=== PATIENT | male | born 1935 | race Caucasian/White ===

== ENCOUNTER → 2016-06-06 | Outpatient (CLI) | payer OTHER, BC | END | disposition home or self-care (01) | LOC: C.LABSPEC 10:37 | PROVIDERS: ATTEND Urology | DX: N39.0 Urinary tract infection, site not specified (principal) ==

== ENCOUNTER 2018-07-28 22:04 | Inpatient (IN) ==
--- OUTSIDE RECORDS SUMMARY | 2018-07-29 00:40 | External Medical Summary | Continuity of Care Document ---
:1935 Author Name Alejandro Avina, Provider Address Unavailable Unavailable , Care Team Providers Name Role Phone Kp Avina, Enzo Butt Unavailable [email or web address] Unavailable Unavailable Unavailable Unavailable Problems Enlarged prostate without lower urinary tract symptoms (luts ) (600.00) (N40.0) Retention of urine (788.20) (R33.9) Urinary tract infection (599.0) (N39.0) Heart trouble (429.9) (I51.9) Hypercholesterolemia (272.0) (E78.00) Hypertension (401.9) (I10) Diabetes mellitus (250.00) (E11.9) Congestive heart failure (428.0) (I50.9) Pacemaker (V45.01) (Z95.0) Arthritis (716.90) (M19.90) Allergies and Adverse Reactions Codeine Derivatives (Allergy) Crestor TABS (Allergy) nitroglycerin (Allergy) Pravachol TABS (Allergy) Adhesive Tape (Allergy) Latex (Allergy) Medications Tamsulosin HCl - 0.4 MG Oral Capsule; TAKE 1 CAPSULE B Kailyn Guzman I. Quantity: 90 Refills: 3 Pantoprazole Sodium 40 MG Oral Tablet Delayed Release Refills: 0 Furosemide 40 MG Oral Tablet Refills: 0 Metoprolol Tartrate 25 MG Oral Tablet Refills: 0 Aspirin 81 MG TABS Refills: 0 Docusate Sodium 50 MG CAPS Refills: 0 diphenhydrAMINE HCl - 25 MG Oral Tablet Refills: 0 HYDROcodone-Acetaminophen 5-325 MG Oral Tablet Refills: 0 Simvastatin 20 MG Oral Tablet Refills: 0 metFORMIN HCl - 850 MG Oral Tablet Refills: 0 Ciprofloxacin HCl - 500 MG Oral Tablet Refills: 0 Finasteride 5 MG Oral Tablet; TAKE 1 TABLET DAILY D IRECTED. Kailyn Goodrich I. Start: 18-Dec-2015 Quantity: 90 Refills: 3 PredniSONE TABS Refills: 0 Lantus SOLN Refills: 0 Vitamin C 500 MG Oral Tablet Refills: 0 Procedures History of Heart Surgery Status: Complet ed Immunizations Immunizations not documented Family History Father Family history of diabetes mellitus (V18.0) (Z83.3) Status: Active Sister Family history of diabetes mellitus (V18.0) (Z83.3) Status: Active Brother Family history of diabetes mellitus (V18.0) (Z83.3) Status: Active Family history of Bile duct cancer (156.1) (C24.0) Status: A ctive Social History - Smoking Status Former smoker Plan of Treatment Planned Encounters Appointment; Enzo Goodrich M.D. Start: 10-Dec-2018 9:30 Re quest Planned Observations Planned Goals not documented Results No Known Results Results not documented Encounters Appointment; Enzo Goodrich M.D. 04-Dec-2017 9:45 Encounter Diagnosis: Problem not documented Appointment; Enzo Goodrich M.D. 05-Jun-2017 9:30 Encounter Diagnosis: Problem not documented Appointment; Enzo Goodrich M.D. 05-Dec-2016 9:30 Encounter Diagnosis: Problem not documented Appointment; Enzo Goodrich M.D. 10-Dec-2018 9:30 Encounter Diagnosis: Problem not documented
[2018-07-29] MEDS ORDERED: GLUCOSE 10 TABS/TUBE PO PRN (00:58)
[2018-07-29] MEDS ORDERED: ONDANSETRON INJ 2 MG/ML 2 ML VIAL IV PRN (00:58)
[2018-07-29] MEDS ORDERED: ALUMINUM/MAGNESIUM SUSP 30 ML UDC PO PRN (00:58)
[2018-07-29] MEDS ORDERED: DEXTROSE 50% 50 ML SYRINGE IV PRN (00:58)
[2018-07-29] MEDS ORDERED: GLUCOSE 40% GEL 15 GM TUBE PO PRN (00:58)
[2018-07-29] MEDS ORDERED: GLUCAGON FOR INJ 1 MG VIAL SQ PRN (00:58)
[2018-07-29] MEDS ORDERED: MAGNESIUM HYDROXIDE SUSP 30 ML UDC PO PRN (00:58)
[2018-07-29] MEDS ORDERED: CARBOHYDRATES FOR HYPOGLYCEMIA PO PRN (00:58)
[2018-07-29] MEDS ORDERED: ACETAMINOPHEN 325 MG TAB PO PRN (00:58)
--- NOTE | 2018-07-29 01:12 | History & Physical Report ---
Date of Service July 29, 2018 Assessment & Plan (1) Left lower lobe pneumonia: 83 yo M direct transfer from [facility] with history of HTN, PVD, CVA, Pacemaker, PMR, DM, GERD, HLD presenting with history of confusion in setting of possible, pneumonia vs pleural effusion Suspected CAP, Left pleural effusion - Admit to Telemetry - Febrile at 100.5 at outside hospital, no leukocytosis, CT chest reportedly showed Let loculated pleural effusion with unclear etiology , either metastatic or infectious - CXR ordered at [facility], preliminary read prior to radiology is suggestive of LLL pneumonia, F/u radiologist report - currently no fever, on NC 2L maintaining saturation - Received Rocephin at outside hospital - Start Rocephin , Azithromycin - Thoracic surgery consulted to evaluate need for thoracentesis (2) Pleural effusion: etiology unclear, will await confirmation with in house imaging Loculated left pleural effusion noted on report from outside facility suggesting either infection or malignancy management as above (3) Diabetes mellitus: SS, Held home insulin, metformin (4) Atrial fibrillation: new onset Atrial fribrillation with RVR etiology unclear given magnesium 2 gm given hypomagnesemiaia noted at outside hospital Repeat was Mg 2, Potassium 3.8 Started IV NS with 20 meq K Gave home dose of 35 mg PO metoprolol Continue to monitor (5) Hypertension: BP controlled Continue Metoprolol held Lasix (6) CAD (coronary artery disease): s/p CABG asx Troponin negative at outside hospital (7) Hyperlipidemia: Continue Simvastatin (8) PMR (polymyalgia rheumatica): Continue prednisone 10 mg daily (9) BPH (benign prostatic hyperplasia): Continue finasteride (10) GERD (gastroesophageal reflux disease): Continue ppi (11) DVT prophylaxis: Heparin History of Present Illness Chief Complaint: Confusion, Pneumonia, Pleural effusion Primary Care Provider: Justin Reeves This is an 83 yo M direct transfer from [facility] with history of HTN, PVD, CVA, Pacemaker, PMR, DM, GERD, HLD. Patient's reported chief complaint was confusion. At the outside hospital, patient was febrile with 100.5 temperature, O2 sat 90- 99, RR 17-20, unremarkable Wbc ct, CMP unremarkable, Mg 1.7, CT head reportedly negative, CT chest with loculated left pleural effusion maybe secondary metastasis or infection. Patient was transferred for possible thoracentesis if indicated. Patient was given 2 gm of Rocephin prior to transfer. On arrival to [facility], patient was normotensive, afebrile patient was in Afib with RVR. He reports no previous history of Afib. Patient reports he previously had chest discomfort but it has resolved, no sob, no cough, no edema. PastMedHx: CVA PVD Heart disease HTN Pacemaker PMR Enlarged prostate DM GERD HLD Arthritis SurgHx: Appendectomy Cholecystectomy CABG HIP sx Hernia repair Allergies Allergy/AdvReac Type Severity Reaction Status Date / Time latex Allergy Redness of Verified 07/29/18 01:21 Skin codeine AdvReac Mild FEELS GOOFY Verified 03/20/09 03:55 nitroglycerin AdvReac Mild HYPOTENSION Verified 03/20/09 03:55 pravastatin AdvReac Unknown Verified 07/29/18 01:08 rosuvastatin AdvReac Unknown Verified 07/29/18 01:08 Home Medications Home Medications Medication Instructions Recorded Confirmed Type Humalog U-100 Insulin 3 unit SUBCUT TID 07/29/18 07/29/18 History Lantus Solostar U-100 Insulin 5 unit SUBCUT BID 07/29/18 07/29/18 History ascorbic acid (vitamin C) [Vitamin 500 mg PO DAILY 07/29/18 07/29/18 History C] aspirin 81 mg PO DAILY 07/29/18 07/29/18 History finasteride 5 mg PO DAILY 07/29/18 07/29/18 History furosemide 40 mg PO DAILY 07/29/18 07/29/18 History metformin 850 mg PO BID 07/29/18 07/29/18 History pantoprazole 40 mg PO DAILY 07/29/18 07/29/18 History potassium chloride 8 meq PO DAILY 07/29/18 07/29/18 History simvastatin 20 mg PO DAILY 07/29/18 07/29/18 History tamsulosin 0.4 mg PO DAILY 07/29/18 07/29/18 History Saccharomyces boulardii 250 mg PO DAILY 7 Days #7 cap 08/02/18 Rx metoprolol tartrate 100 mg PO BID #60 tab 08/02/18 Rx nystatin 5 ml PO QID 7 Days #150 ml 08/02/18 Rx Past Med/Surg History Medical History Hyperlipidemia Diabetes mellitus PMR (polymyalgia rheumatica) Hypertension CAD (coronary artery disease) CVA (cerebral vascular accident) Arthritis GERD (gastroesophageal reflux disease) PVD (peripheral vascular disease) Pacemaker Prostate enlargement Surgical History H/O hernia repair History of appendectomy History of cholecystectomy History of hip surgery Hx of CABG Social History Preferred Language: Greenlandic Communication Ability: Effective Beliefs That Will Affect Care: None marital status: Current Living Situation: Spouse Feels Safe at Home: Yes Smoking Status: Never smoker Hx Alcohol Use: No Hx Substance Use: No Review of Systems Review of Systems: All systems reviewed & are unremarkable except as noted in HPI & below Physical Exam Physical Exam: GENERAL APPEARANCE: alert and cooperative, and appears to be in no acute distress. HEAD: normocephalic. EYES: PERRL, EOMI.l, vision is grossly intact. EARS: hearing grossly intact. NOSE: No nasal discharge. NECK: Neck supple, non-tender without lymphadenopathy CARDIAC: Normal S1 and S2. No S3, S4 or murmurs. Rhythm is irreguarly irregular LUNGS:Left lower lobe crackles, dec'd breath sounds. no wheezing ABDOMEN: Positive bowel sounds. Soft, nondistended, nontender. No guarding or rebound. No masses. LOWER EXTREMITY: no edema NEUROLOGICAL: CN II-XII grossly intact. Strength and sensation symmetric and intact throughout SKIN: Skin normal color, texture and turgor with no lesions or eruptions. Results & Data Vital Signs (Past 12 Hours) Vital Signs Temp Pulse Resp BP Pulse Ox 07/29/18 00:28 37.0 C 105 H 18 129/64 97 Intake and Output 07/28/18 07/28/18 07/29/18 14:59 22:59 06:59 Intake Total 100 / 100 Balance 100 / 100 Intake: IV 100 / 100 MAGNESIUM SULFATE / D5W 1 gm In 100 / 100 100 ml @ 100 mls/hr IV Q1H [facility] Rx#:[id number] Other: Weight 68 kg Patient Weight 07/29/18 06:59 Weight 68 kg Laboratory Results Laboratory Results WBC 4.92 K/uL (4.8-10.8) 07/29/18 01:15 RBC 4.24 M/uL (4.7-6.1) L 07/29/18 01:15 Hgb 13.0 g/dL (14.0-18.0) L 07/29/18 01:15 Hct 38.8 % (42-52) L 07/29/18 01:15 MCV 91.5 fL (80-100) 07/29/18 01:15 MCH 30.7 pg (25-34) 07/29/18 01:15 MCHC 33.5 g/dL (32-36) 07/29/18 01:15 RDW Std Deviation 47.8 fL (36.4-46.3) H 07/29/18 01:15 RDW Coeff of Elizabeth 14.3 % (11.5-14.5) 07/29/18 01:15 Plt Count 150 K/uL (130-400) 07/29/18 01:15 MPV 9.7 fL (7.4-10.4) 07/29/18 01:15 Immature Gran % (Auto) 0.2 % 07/29/18 01:15 Neut % (Auto) 90.8 % 07/29/18 01:15 Lymph % (Auto) 3.7 % 07/29/18 01:15 Yancey % (Auto) 5.1 % 07/29/18 01:15 Eos % (Auto) 0.0 % 07/29/18 01:15 Baso % (Auto) 0.2 % 07/29/18 01:15 Immature Gran # (Auto) 0.01 K/uL (0.00-0.02) 07/29/18 01:15 Neut # (Auto) 4.47 K/uL (1.4-6.5) 07/29/18 01:15 Lymph # (Auto) 0.18 K/uL (1.2-3.4) L 07/29/18 01:15 Yancey # (Auto) 0.25 K/uL (0.11-0.59) 07/29/18 01:15 Eos # (Auto) 0.00 K/uL (0-0.5) 07/29/18 01:15 Baso # (Auto) 0.01 K/uL (0-0.2) 07/29/18 01:15 Sodium 134 mmol/L (136-145) L 07/29/18 01:15 Potassium 3.8 mmol/L (3.5-5.1) 07/29/18 01:15 Chloride 99 mmol/L (98-107) 07/29/18 01:15 Carbon Dioxide 28 mmol/L (21-32) 07/29/18 01:15 Anion Gap 7.0 (3-11) 07/29/18 01:15 BUN 26 mg/dl (7-18) H 07/29/18 01:15 Creatinine 1.03 mg/dl (0.6-1.4) 07/29/18 01:15 Est Cr Clr Drug Dosing 50.4 ml/min 07/29/18 01:15 Est GFR ( Amer) 76.4 07/29/18 01:15 Est GFR (Non-Af Amer) 65.9 07/29/18 01:15 BUN/Creatinine Ratio 25.3 (10-20) H 07/29/18 01:15 Glucose 146 mg/dl (70-99) H 07/29/18 01:15 Calcium 8.9 mg/dl (8.5-10.1) 07/29/18 01:15 Phosphorus 4.1 mg/dl (2.5-4.9) 07/29/18 01:15 Magnesium 2.0 mg/dl (1.8-2.4) 07/29/18 01:15 Total Bilirubin 0.4 mg/dl (0.2-1) 07/29/18 01:15 AST 15 U/L (15-37) 07/29/18 01:15 ALT 15 U/L (12-78) 07/29/18 01:15 Alkaline Phosphatase 95 U/L (45-117) 07/29/18 01:15 Total Protein 7.8 gm/dl (6.4-8.2) 07/29/18 01:15 Albumin 3.5 gm/dl (3.4-5.0) 07/29/18 01:15 Globulin 4.3 gm/dl (2.5-4.0) H 07/29/18 01:15 Albumin/Globulin Ratio 0.8 (0.9-2) L 07/29/18 01:15 Medications Administered Discontinued Medications Magnesium Sulfate/Dextrose (Magnesium Sulfate / D5w) 1 gm in 100 mls @ 100 mls/hr IV Q1H BLU Stop: 07/29/18 03:23 Last Admin: 07/29/18 03:00 Dose: 100 mls/hr Documented by: [id number] Infusion: 07/29/18 02:49 Dose: 100 mls/hr Documented by: [id number] Admin: 07/29/18 01:49 Dose: 100 mls/hr Documented by: [id number] Metoprolol Tartrate (Lopressor) 25 mg PO NOW STA Stop: 07/29/18 01:31 Last Admin: 07/29/18 01:49 Dose: 25 mg Documented by: [id number] ECG Rate (beats per minute): 175 Rhythm: atrial fibrillation Findings: + paced rhythm Comparison ECG Date: no prior available Code Status & VTE Plan VTE Prophylaxis Plan VTE Prophylaxis will be ordered: Yes Supervising Physician Co-Signing Physician Notes Attending addendum: I have physically seen this patient, have supervised the medical residents activities, and agree with the H&P unless as otherwise noted. Assessment and Plan: Pneumonia involving left lower lobe/parapneumonic effusion- Transfer from [facility] emergency department where he was given ceftriaxone IV. Admit on ceftriaxone 1 g IV daily and azithromycin 5 mg IV daily. Duonebs every 4 hours while awake and every 2 hours when necessary. Sputum Gram stain and culture. Guaifenesin extended release 600 mg p.o. twice daily. Pleural effusion noted on outpatient CT, however, on x-ray here, does not look to be prominent, but possibly loculated as reported on CT. Thoracic surgery consult to further assess. New onset atrial fibrillation with RVR- Noted during examination. Replacing electrolytes, in particular given magnesium 2 g IV now. IV fluid rehydration. Reassess after repeat laboratories in a few hours. May need IV Lopressor as needed. Remainder of orders and notations as noted. Resident Activity Tracking Resident Involvement: Resident Care Provided Care Provided: [facility] Medicine
[2018-07-29 01:29] LABS: Basophils # (auto) 0.01 K/uL (0-0.2); Basophils % (auto) 0.2 %; Hematocrit (blood only) 38.8 % (42-52); Immature Granulocytes # (auto) 0.01 K/uL (0.00-0.02); Immature Granulocytes % (auto) 0.2 %; Lymphocytes # (auto) 0.18 K/uL (1.2-3.4); Lymphocytes % (auto) 3.7 %; Mean Corpuscular Volume 91.5 fL (80-100); Mean Platelet Volume 9.7 fL (7.4-10.4); Monocytes # (auto) 0.25 K/uL (0.11-0.59); Monocytes % (auto) 5.1 %; Neutrophils # (auto) 4.47 K/uL (1.4-6.5); Neutrophils % (auto) 90.8 %; Platelet Count 150 K/uL (130-400); RDW Coefficient of Variation 14.3 % (11.5-14.5); RDW Standard Deviation 47.8 fL (36.4-46.3); Red Blood Count 4.24 M/uL (4.7-6.1); White Blood Count 4.92 K/uL (4.8-10.8)
[2018-07-29] MEDS ORDERED: METOPROLOL TARTRATE 25 MG TAB PO STA (01:30)
[2018-07-29 01:47] LABS: Albumin Level 3.5 gm/dl (3.4-5.0); BUN Creatinine Ratio 25.3 (10-20); Calcium 8.9 mg/dl (8.5-10.1); Creatinine Clr Calc Pharmacy 50.4 ml/min; Est GFR (African American) 76.4; Est GFR (Non-African American) 65.9; Potassium 3.8 mmol/L (3.5-5.1)
[2018-07-29] MEDS: MAGNESIUM SULFATE / D5W 1 GM/100 ML BAG IV SCH ×2 (01:49→03:00)
[2018-07-29 01:50] LABS: Albumin Globulin Ratio 0.8 (0.9-2); Bilirubin,Total 0.4 mg/dl (0.2-1); Globulin 4.3 gm/dl (2.5-4.0); Total Protein 7.8 gm/dl (6.4-8.2)
[2018-07-29 02:02] LABS: Mean Corpuscular Hgb Conc 33.5 g/dL (32-36)
[2018-07-29 03:18] LABS: Phosphorus 4.1 mg/dl (2.5-4.9)
[2018-07-29] MEDS: cefTRIAXone SODIUM 2,000 MG in DEXTROSE 5% 50 ML IV SCH (03:52)
[2018-07-29] MEDS: AZITHROMYCIN 500 MG in DEXTROSE 5% 250 ML IV SCH (04:51)
[2018-07-29] MEDS: NSS + 20MEQ KCL 20 MEQ/1,000 ML BAG IV SCH ×2 (05:39→15:57)
[2018-07-29 06:00] LABS: Hematocrit (blood only) 35.1 % (42-52); Hemoglobin 11.9 g/dL (14.0-18.0); Mean Corpuscular Hgb Conc 33.9 g/dL (32-36); Mean Corpuscular Volume 90.9 fL (80-100); Mean Platelet Volume 9.7 fL (7.4-10.4); Platelet Count 130 K/uL (130-400); RDW Coefficient of Variation 14.5 % (11.5-14.5); RDW Standard Deviation 47.8 fL (36.4-46.3); Red Blood Count 3.86 M/uL (4.7-6.1)
[2018-07-29 07:55] LABS: INR 1.1 (0.9-1.1); Prothrombin Time 10.9 Seconds (9.0-12.0)
--- NOTE | 2018-07-29 08:26 | XRay Report ---
XR chest 1V portable CLINICAL HISTORY: pleural effusion COMPARISON STUDY: No previous studies for comparison. FINDINGS: There are median sternotomy wires, mediastinal surgical clips, dual-lead left subclavian pa cemaker prosthetic cardiac valve. Mild cardiomegaly is noted without evidence for pulmonary edema. A small left pleural effusion with left basilar opacity is noted. Multiple left-sided rib fractures are noted. These appear subacute to chronic. IMPRESSION: 1. Small left pleural effusion with left basilar opacity which may reflect atelectasis or consolidati on. Radiographic follow-up to ensure resolution is recommended. 2. Multiple left-sided rib fractures which appear subacute to chronic. Electronically signed by: Puma Maldonado M.D. 07/29/2018 8:25 AM
[2018-07-29] MEDS: TAMSULOSIN HCL 0.4 MG CAP PO SCH (08:34)
[2018-07-29] MEDS: PANTOprazole 40 MG TAB PO SCH (08:35)
[2018-07-29] MEDS: FINASTERIDE 5 MG TAB PO SCH (08:35)
[2018-07-29] MEDS: predniSONE 10 MG TABLET PO SCH (08:35)
[2018-07-29] MEDS: SIMVASTATIN 20 MG TAB PO SCH (08:35)
[2018-07-29] MEDS: ASPIRIN 81 MG ECTAB PO SCH (08:35)
[2018-07-29] MEDS: METOPROLOL TARTRATE 50 MG TAB PO SCH ×2 (08:36→20:25)
[2018-07-29] MEDS: INSULIN ASPART 100 UNITS/ML 3 ML PEN SC SCH ×4 (08:40→20:24)
[2018-07-29] MEDS: HEPARIN SOD 5,000 UNIT/0.5 ML VIAL SQ SCH ×2 (09:04→20:26)
--- NOTE | 2018-07-29 10:55 | History & Physical Bridge Note ---
Date of Service July 29, 2018 History & Physical Bridge Note I have examined the patient, reviewed the History & Physical and in the interval since the performance of the History & Physical I have noted the following changes of clinical significance: patient seen in his room, breathing is stable, moving good air in all lung perry, even in left base with reported loculated effusion d/w Leodan MEJIA with thoracic surgery, he is getting CT chest uploaded and will view with Dr. Rosales tomorrow no indication for thoracentesis today no fever, WBC is normal, vitals stable and patient feels well he says that his main complaint yesterday was that he felt weak and could not get up does not have a cough or dyspnea continue Rocephin and Zithromax, follow up on Dr. Rosales's recommendations tomorrow
--- NOTE | 2018-07-29 19:55 | Consultation Report ---
DATE OF CONSULTATION: 07/29/2018 SURGICAL CONSULT CHIEF COMPLAINT: Concern for a pleural effusion on the left side. HISTORY OF PRESENT ILLNESS: This is an 83-year-old male who was transferred to [facility] from [facility] secondary to a left lower lobe pneumonia as well as concern for a loculated pleural effusion. I visited with the patient at bedside and he notes that he leads a very active lifestyle, doing yard work around his house. He says over the past week he has been able to maintain his normal level of activity; however, yesterday, he noted some shortness of breath as well as a slight fever with a temperature of 100.5. Because of this, he went to [facility] where he had imaging performed. The imaging is in the process of being retrieved at this time. The patient was told that he had a pneumonia and he also reportedly had a CAT scan that showed concern for a loculated left pleural effusion, so he was transferred to [facility]. I did question and visited with the patient at bedside and again he notes he has been at his usual state of health over the past week until yesterday. He has not had any recent falls, head injuries or new visual changes. He denies any tinnitus or sore throat. He does not report any neck pain or chest pain. He did note some shortness of breath that was slightly worse with exertion that began yesterday. He also had a slight fever yesterday. He did not report any shakes or chills. He notes his appetite has been normal. He has not had any nausea, vomiting. He also denies any dysuria. He does not report any history of DVT or PE. He denies anxiety or depression. Since arrival to [facility], the patient has had labs performed where he did have a CBC on 2 occasions where he had a white blood cell count that was normal on both occasions. His hemoglobin and hematocrit currently are 11.9 and 35.1 and his platelet count is within the normal range. Coagulation studies reveal his INR is within the normal range and a chemistry profile showed sodium is 134, potassium and creatinine are normal. BUN is slightly elevated at 26. There is no elevation of LFTs. He did have imaging performed at [facility], which consisted of a chest x-ray that showed he had a small left pleural effusion with some left basilar opacity that was felt to reflect the possible pneumonia. He has some left-sided rib fractures which are noted to be chronic. At the time of my exam, he was resting comfortably in bed and he said that he felt fine and markedly improved since his antibiotics have been started. PAST MEDICAL HISTORY: Includes the followin. Coronary artery disease. 2. History of stroke. 3. Peripheral vascular disease. 4. Hypertension. 5. BPH. 6. Polymyalgia rheumatica. 7. Diabetes. 8. GERD. 9. Hyperlipidemia. 10. Arthritis. PAST SURGICAL HISTORY: Includes: 1. Appendectomy. 2. Cholecystectomy. 3. Herniorrhaphy. 4. Hip surgery. 5. Coronary bypass grafting. 6. Permanent pacemaker placement. ALLERGIES: HE HAS LISTED ALLERGIES TO LATEX, CODEINE, NITROGLYCERIN, PRAVASTATIN AND OTHER STATINS. MEDICATIONS: Include 1. Rocephin 2 grams daily. 2. Azithromycin 500 mg daily. 3. Potassium chloride 20 mEq daily. 4. Sliding scale insulin. 5. Aspirin 81 mg daily. 6. Proscar 5 mg daily. 7. Protonix 40 mg daily. 8. Prednisone 10 mg daily. 9. Zocor 20 mg daily. 10. Metoprolol 25 mg twice daily. 11. Flomax 0.4 mg daily. 12. Subcutaneous heparin 5000 units every 12 hours. The patient is also taking p.r.n. Tylenol, milk of magnesia, Zofran and Maalox. SOCIAL HISTORY: The patient is a former smoker, but he quit 40 years ago. 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 FAMILY HISTORY: He does not know family history of premature coronary artery disease. REVIEW OF SYSTEMS: As noted above. PHYSICAL EXAMINATION: VITAL SIGNS: The patient is afebrile with a temperature of 37.0. It is noteworthy to mention he has been afebrile since arrival to [facility], blood pressure 122/55, pulse 79 and regular, respirations are 19. They are nonlabored, pulse ox 98% on 3 liters. SKIN: Warm with good turgor. GENERAL: He is alert. He is oriented x3, he is in no distress. HEENT: Head is atraumatic, normocephalic. Eyes: Pupils equal, round react to light and accommodation. Extraocular motions are intact. Ears: Auditory acuity is grossly intact. Nose: Nasal patency was intact. Sinuses are nontender. Mouth is moist without exudates. NECK: Supple. There is no JVD. CARDIOVASCULAR: Regular rate and rhythm. LUNGS: Revealed that patient's breath sounds were slightly decreased with a few rhonchi at the bases but overall had good air movement bilaterally, no wheezing, use of accessory muscles were noted. The patient's chest was examined. He had a well-healed median sternotomy incision. ABDOMEN: Soft, nontender, nondistended. Palpation did not cause pain. EXTREMITIES: Revealed no cyanosis, clubbing, or edema. The patient's feet were warm. I cannot palpate pedal pulses; however. NEUROLOGIC: Revealed cranial nerves II through XII are grossly intact. He can move all 4 extremities and follow simple commands and he was alert and oriented x3 and acting appropriately. DIAGNOSTIC DATA: As noted above. IMPRESSION: An 83-year-old male with a left lower lobe pneumonia with a small left pleural effusion. PLAN: We are in the process of retrieving patient's CT scan from [facility] to help better quantify the size of his pleural effusion. Based on chest x-ray and physical exam, it does not appear to be very large. We will not perform any intervention today, particularly since the patient is afebrile and without leukocytosis. I would recommend continuing antibiotics as the medical service has already initiated. We will follow the patient's clinical course as it unfolds with further recommendations to be made in the future.
[2018-07-30] MEDS: NSS + 20MEQ KCL 20 MEQ/1,000 ML BAG IV SCH ×3 (02:01→20:34)
[2018-07-30] MEDS: cefTRIAXone SODIUM 2,000 MG in DEXTROSE 5% 50 ML IV SCH (03:05)
[2018-07-30] MEDS: AZITHROMYCIN 500 MG in DEXTROSE 5% 250 ML IV SCH (03:52)
[2018-07-30] MEDS: FINASTERIDE 5 MG TAB PO SCH (08:20)
[2018-07-30] MEDS: PANTOprazole 40 MG TAB PO SCH (08:20)
[2018-07-30] MEDS: predniSONE 10 MG TABLET PO SCH (08:20)
[2018-07-30] MEDS: TAMSULOSIN HCL 0.4 MG CAP PO SCH (08:20)
[2018-07-30] MEDS: METOPROLOL TARTRATE 50 MG TAB PO SCH ×4 (08:20→23:21)
[2018-07-30] MEDS: ASPIRIN 81 MG ECTAB PO SCH (08:20)
[2018-07-30] MEDS: SIMVASTATIN 20 MG TAB PO SCH (08:20)
[2018-07-30] MEDS: HEPARIN SOD 5,000 UNIT/0.5 ML VIAL SQ SCH ×2 (08:21→20:38)
[2018-07-30] MEDS: INSULIN ASPART 100 UNITS/ML 3 ML PEN SC SCH ×4 (08:24→20:37)
[2018-07-30 10:04] LABS: Hematocrit (blood only) 35.6 % (42-52); Hemoglobin 11.8 g/dL (14.0-18.0); Mean Corpuscular Hgb Conc 33.1 g/dL (32-36); Mean Platelet Volume 9.8 fL (7.4-10.4); Platelet Count 116 K/uL (130-400); RDW Coefficient of Variation 14.6 % (11.5-14.5); RDW Standard Deviation 49.5 fL (36.4-46.3); Red Blood Count 3.83 M/uL (4.7-6.1); White Blood Count 5.25 K/uL (4.8-10.8)
[2018-07-30 11:01] LABS: BUN Creatinine Ratio 21.5 (10-20); Calcium 8.1 mg/dl (8.5-10.1); Creatinine Clr Calc Pharmacy 62.5 ml/min; Est GFR (African American) 91.6; Est GFR (Non-African American) 79.1; Potassium 4.6 mmol/L (3.5-5.1)
--- NOTE | 2018-07-30 11:51 | Hospitalist Progress Note ---
Date of Service July 30, 2018 Assessment & Plan (1) Left lower lobe pneumonia: community acquired cont rocephin/zithromax IV - day #2 of such likely cause of fatigue/weakness/anorexia (2) Pleural effusion: left may be loculated, but no symptoms of empyema small to moderate on imaging Dr Rosales to attempt thoracentesis today to ensure no empyema, malignancy, etc (3) Diabetes mellitus: add lantus 10 units TID adjust novolog w/ meals (4) Atrial fibrillation: suspected to be chronic metoprolol 25mg q6h - adjust dose as necessary NOT on chronic anticoagulation at home pacer interrogation requested to see a.fib burden (5) Hypertension: cont home meds (6) CAD (coronary artery disease): cont asa, statin, BB, etc no ischemic sx's at this time (7) Hyperlipidemia: statin (8) PMR (polymyalgia rheumatica): initial impression was that he was on 10mg/day at home chronically but apparently has been weaned off MANY months ago I had initially given him stress dose steroids with hydrocortisone - will wean these off quickly (9) BPH (benign prostatic hyperplasia): cont flomax and finasteride foiding ok at this time (10) GERD (gastroesophageal reflux disease): cont PPI (11) DVT prophylaxis: heparin q12h cont fluids today likely stop in am repeat labs am updated await thoracentesis Subjective at bedside during the visit. she reports a h/o a.fib in the past and at one point was on coumadin but was taken off of it due to GI bleeding. follows w/ cardiology in [place] - saw cardiology 1-2 months; pacer interrogation was ok per . his metoprolol was increased during that visit. pacer is [employer] device. his main complaints are that of fatigue and anorexia. he was oriented during the visit x 3. spoke with lab at [facility]-- blood and urine cx's are negative. Review of Systems Constitutional: + fatigue; no fever and no chills Respiratory: no cough, no dyspnea and no pain on inspiration Cardiovascular: no chest pain Gastrointestinal: no abdominal pain Physical Exam Constitutional: + ill appearing and + thin; no acute distress ENMT: external ear and nose normal, oropharynx normal Respiratory: normal respiratory effort, lungs clear to auscultation Auscultation: + diminished lung sounds (left base) Cardiovascular: Rate/Rhythm: + tachycardic and + irregularly irregular Heart Sounds: normal S1 and normal S2; no murmur Vessels: posterior tibial pulses present and dorsalis pedis pulses present; no JVD Extremities: no edema Gastrointestinal (Abdomen): normal bowel sounds, soft, nontender, no hepatosplenomegaly Psychiatric: A+Ox3, euthymic affect Results & Data Vital Signs (Past 12 Hours) Vital Signs Temp Pulse Resp BP Pulse Ox 07/30/18 07:04 37.2 C 86 17 141/89 H 95 07/30/18 04:00 37.0 C 82 16 152/88 H 94 07/29/18 23:56 36.9 C 86 16 135/76 94 Laboratory Results Laboratory Results - last 24 hr 07/29/18 07/29/18 07/30/18 16:21 19:51 07:46 WBC RBC Hgb Hct MCV MCH MCHC RDW Std Deviation RDW Coeff of Elizabeth Plt Count MPV Sodium Potassium Chloride Carbon Dioxide Anion Gap BUN Creatinine Est Cr Clr Drug Dosing Est GFR ( Amer) Est GFR (Non-Af Amer) BUN/Creatinine Ratio Glucose POC Glucose 178 H 192 H 143 H Calcium 07/30/18 07/30/18 07/30/18 09:49 09:49 11:09 WBC 5.25 RBC 3.83 L Hgb 11.8 L Hct 35.6 L MCV 93.0 MCH 30.8 MCHC 33.1 RDW Std Deviation 49.5 H RDW Coeff of Elizabeth 14.6 H Plt Count 116 L MPV 9.8 Sodium 136 Potassium 4.6 D Chloride 103 Carbon Dioxide 25 Anion Gap 8.0 BUN 19 H Creatinine 0.86 Est Cr Clr Drug Dosing 62.5 Est GFR ( Amer) 91.6 Est GFR (Non-Af Amer) 79.1 BUN/Creatinine Ratio 21.5 H Glucose 177 H POC Glucose 190 H Calcium 8.1 L PG Care Time/CCT Total # of Minutes Spent Total Time Spent with Patient: Total time spent is greater than 50% in coordination of care (as documented) at patient's floor/unit and/or counseling patient: (1) BPH (benign prostatic hyperplasia) Lower urinary tract symptom presence: symptoms absent Qualified Code(s): N40.0 - Benign prostatic hyperplasia without lower urinary tract symptoms (2) Diabetes mellitus Diabetes mellitus type: type 2 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 transplanted heart: [place] heart Associated angina: without angina Qualified Code(s): I25.10 - Atherosclerotic heart disease of [place] coronary artery without angina pectoris (4) Atrial fibrillation Atrial fibrillation type: chronic Qualified Code(s): I48.2 - Chronic atrial fibrillation (5) Hyperlipidemia Hyperlipidemia type: mixed hyperlipidemia Qualified Code(s): E78.2 - Mixed hyperlipidemia (6) Left lower lobe pneumonia Pneumonia type: due to unspecified organism Qualified Code(s): J18.1 - Lobar pneumonia, unspecified organism (7) GERD (gastroesophageal reflux disease) Esophagitis presence: esophagitis presence not specified Qualified Code(s): K21.9 - Gastro-esophageal reflux disease without esophagitis (8) Hypertension Hypertension type: essential hypertension Qualified Code(s): I10 - Essential (primary) hypertension
[2018-07-30] MEDS: HYDROCORTISONE SOD 25 MG in SYRINGE 0 ML IV SCH ×2 (11:58→20:37)
[2018-07-30] MEDS ORDERED: INSULIN GLARGINE SOLOSTAR 100 UNITS/ML 3 ML PEN SC SCH (12:00)
--- NOTE | 2018-07-30 12:17 | Progress Note ---
DATE: 07/30/2018 Ms. Rincon is an 83-year-old male with a history of polymyalgia rheumatica, diabetes, coronary artery disease, among other things who presents with some shortness of breath which is rather subacute. I had a long talk with him at the bedside. The patient has never really had asbestos exposure. He has never smoked cigarettes. He denies any signs or symptoms that would suggest an upper respiratory infection. The patient has a complicated effusion in his left base. I had a long talk with him today. Definitely, he has decreased breath sounds on exam. I am going to perform a diagnostic tap on him. Under ultrasound guidance at the bedside later this afternoon, I am going to do a thoracentesis and I hope that we are able to make a diagnosis. It does not appear to me this is going to be drained as it is heterogenous. Needed to say, I have some concerns about what would cause this type of effusion. We discussed this in some detail. Despite his advanced age, I may offer him a thoracoscopic decortication. We will see what the diagnostic thoracentesis shows.
--- NOTE | 2018-07-30 16:10 | XRay Report ---
XR chest 1V portable CLINICAL HISTORY: attempted thoracentesis post procedure COMPARISON STUDY: 07/29/2018 FINDINGS: No evidence of pneumothorax postthoracentesis. Increased density left base is unchanged. Ri ght lung is clear. IMPRESSION: 1. No postprocedural pneumothorax. 2. Unchanging increased density left base The above report was generated using voice recognition software. It may contain grammatical, syntax or spelling errors. Electronically signed by: Osbaldo Radford M.D. 07/30/2018 4:09 PM
[2018-07-30] MEDS: INSULIN GLARGINE SOLOSTAR 100 UNITS/ML 3 ML PEN SC SCH (20:37)
--- NOTE | 2018-07-30 20:59 | Operative Report ---
DATE OF OPERATION: 07/30/2018 PREOPERATIVE DIAGNOSIS: Loculated left pleural effusion. POSTOPERATIVE DIAGNOSIS: Loculated left pleural effusion. PROCEDURE: Attempted left thoracentesis under ultrasound guidance. SURGEON: Alton Rosales MD ENVIRONMENTAL SERVICES ASSOCIATE: JACKIE Vivar ANESTHESIA: Local. DESCRIPTION OF PROCEDURE: The patient in a seated position, ultrasound was used to find a loculated area. This was not homogeneous fluid inside of it, but I thought that a diagnostic thoracentesis should be offered as the patient states that subjectively he has more dyspnea on exertion over the last few months. Under ultrasound guidance, an area was found which was a window into the left pleural cavity posteriorly about the eighth interspace. The area was prepped and draped in usual sterile fashion. After appropriate timeout had been called, a 25-gauge needle was used to raise a skin wheal above the rib. A large bore needle was used to anesthetize the muscle and pleura, although it was very difficult to get into. A large bore needle was then placed on the hub and using Xylocaine I did inject going in and it was very difficult to get to the pleura but when I did I could not withdraw anything out. I removed the needle. We had no bleeding. An antimicrobial dressing was placed. Chest x-ray showed no evidence of pneumothorax or hematoma. He tolerated it well. I attest to the content of the Intraoperative Record and any orders documented therein. Any exceptions are noted below. MTDD
[2018-07-31] MEDS: cefTRIAXone SODIUM 2,000 MG in DEXTROSE 5% 50 ML IV SCH (03:01)
[2018-07-31] MEDS: AZITHROMYCIN 500 MG in DEXTROSE 5% 250 ML IV SCH (04:01)
[2018-07-31] MEDS: METOPROLOL TARTRATE 50 MG TAB PO SCH ×4 (05:50→23:25)
--- NOTE | 2018-07-31 07:21 | XRay Report ---
XR chest 1V portable CLINICAL HISTORY: 83 years-old Male presenting with effusion. TECHNIQUE: Portable upright AP view of the chest was obtained. COMPARISON: 07/30/2018. FINDINGS: Left subclavian pacer with leads to the right atrium and right ventricular apex. Prosthetic aortic va lve and median sternotomy wires noted. Few external leads project over the thorax. Atherosclerosis of the aortic arch. Cardiac silhouette mildly enlarged. Pulmonary vascular prominence of bronchial wall cuffing. This has mildly worsened from prior. Unchanged aeration of the left lung base with a small to moderate left pleural effusion and left basilar opacity. Right lung and pleural space clear. No pneumothorax. Degenerative changes of the thoracic spine. IMPRESSION: 1. Mild cardiomegaly with suspected worsening volume overload and congestive change. No mary pulmon kristal edema at this time. 2. Persistent small to moderate left pleural effusion with poor aeration of the left lung base. This is grossly unchanged from prior. Electronically signed by: Austin Barrow M.D. 07/31/2018 7:20 AM
[2018-07-31 07:22] LABS: Hematocrit (blood only) 36.3 % (42-52); Hemoglobin 12.1 g/dL (14.0-18.0); Mean Corpuscular Hgb Conc 33.3 g/dL (32-36); Mean Corpuscular Volume 91.7 fL (80-100); Mean Platelet Volume 10.5 fL (7.4-10.4); Platelet Count 144 K/uL (130-400); RDW Coefficient of Variation 14.4 % (11.5-14.5); Red Blood Count 3.96 M/uL (4.7-6.1); White Blood Count 6.11 K/uL (4.8-10.8)
[2018-07-31 07:51] LABS: BUN Creatinine Ratio 19.7 (10-20); Calcium 8.8 mg/dl (8.5-10.1); Creatinine Clr Calc Pharmacy 66.6 ml/min; Est GFR (African American) 93.9; Potassium 4.3 mmol/L (3.5-5.1)
--- NOTE | 2018-07-31 08:18 | Surgery Progress Note ---
Date of Service July 31, 2018 Assessment & Plan (1) Left lower lobe pneumonia: -pt. has pleural effusion noted on CT scan: -attempted thoracentesis on 07/30/18 (fluid likely too thick/chronic and unable to be aspirated) -will follow clinically for now as he is doing well -continue treatment of pneumonia as directed by primary service Subjective Pt. notes his breathing feels normal and he has no SOB. No fevers, shakes, chills. Physical Exam Constitutional: WD/WN, vitals as above well developed and well nourished Respiratory: BS with only a slight decrease with occasional crackle at left base; thoracentesis site is clean Results & Data Vital Signs (Past 12 Hours) Vital Signs Temp Pulse Pulse Pulse Resp BP Pulse Ox 07/31/18 07:00 36.7 C 88 20 122/77 90 07/31/18 03:54 36.4 C L 80 16 156/72 H 94 07/30/18 23:47 99 H 07/30/18 22:58 36.6 C 81 18 112/57 L 92 (1) Left lower lobe pneumonia Pneumonia type: due to unspecified organism Qualified Code(s): J18.1 - Lobar pneumonia, unspecified organism
[2018-07-31] MEDS: TAMSULOSIN HCL 0.4 MG CAP PO SCH (08:28)
[2018-07-31] MEDS: PANTOprazole 40 MG TAB PO SCH (08:28)
[2018-07-31] MEDS: HEPARIN SOD 5,000 UNIT/0.5 ML VIAL SQ SCH ×2 (08:28→20:22)
[2018-07-31] MEDS: SIMVASTATIN 20 MG TAB PO SCH (08:28)
[2018-07-31] MEDS: predniSONE 10 MG TABLET PO SCH (08:28)
[2018-07-31] MEDS: HYDROCORTISONE SOD 25 MG in SYRINGE 0 ML IV SCH (08:28)
[2018-07-31] MEDS: ASPIRIN 81 MG ECTAB PO SCH (08:28)
[2018-07-31] MEDS: FINASTERIDE 5 MG TAB PO SCH (08:28)
[2018-07-31] MEDS: INSULIN ASPART 100 UNITS/ML 3 ML PEN SC SCH ×4 (08:29→20:23)
[2018-07-31] MEDS: NSS + 20MEQ KCL 20 MEQ/1,000 ML BAG IV SCH (08:30)
[2018-07-31] MEDS: INSULIN GLARGINE SOLOSTAR 100 UNITS/ML 3 ML PEN SC SCH ×2 (08:30→20:22)
[2018-07-31] MEDS: NYSTATIN SUSP 500,000 U/5 ML UDC PO SCH ×2 (17:15→20:24)
--- NOTE | 2018-07-31 20:49 | Hospitalist Progress Note ---
Date of Service July 31, 2018 Assessment & Plan (1) Left lower lobe pneumonia: community acquired CLINICALLY IMPROVED day #3 of rocephin/zithromax IV --- stop IV abx today; convert to PO levaquin 750mg daily starting in AM and complete 4 more days of such for total 7-day course of IV/PO abx blood cx's from [facility] [address] have been negative (2) Pleural effusion: left may be loculated, but no symptoms of empyema small to moderate on imaging Dr Rosales attempted thoracentesis yesterday to ensure no empyema, malignancy, etc but not enough fluid there and dry tap occurred would recommend a repeat CT in 6 weeks to ensure resolution and/or stability (3) Diabetes mellitus: added lantus 10 units BID w/ improvement weaning prednisone will help glycemic control as well cont novolog w/ meals (4) Atrial fibrillation: suspected to be chronic metoprolol 50mg q6h NOT on chronic anticoagulation at home pacer interrogation requested to see mini burden home dosing is 75mg BID of metoprolol tartrate (5) Hypertension: cont home meds (6) CAD (coronary artery disease): cont asa, statin, BB, etc no ischemic sx's at this time (7) Hyperlipidemia: statin (8) PMR (polymyalgia rheumatica): initial impression was that he was on 10mg/day at home chronically but apparently has been weaned off MANY months ago I had initially given him stress dose steroids with hydrocortisone - will wean these off quickly wean to 20mg prednisone today stop hydrocortisone (9) BPH (benign prostatic hyperplasia): cont flomax and finasteride foiding ok at this time (10) GERD (gastroesophageal reflux disease): cont PPI (11) DVT prophylaxis: heparin q12h stop fluids PT, OT consults extensively updated at bedside leave on tele 1 more day Subjective tele with shaanfib - rates improved patient reports appetite MUCH better fatigue better walking in room with more strength but hasn't been outside the room for walk yet no cough, dyspnea, pleuritic chest pain, or orthopnea pleased w/ progress noted - "dry tap" when thoracentesis attempted last evening Review of Systems Constitutional: no fever, no body aches, no weakness and no anorexia Respiratory: no cough, no dyspnea and no dyspnea on exertion Cardiovascular: no chest pain Gastrointestinal: + diarrhea/loose stools; no abdominal pain Physical Exam Constitutional: + thin; no acute distress ENMT: external ear and nose normal, oropharynx normal Respiratory: normal respiratory effort, lungs clear to auscultation Auscultation: + diminished lung sounds (left base) and + rales (left base) Cardiovascular: Rate/Rhythm: regular rate and + irregularly irregular Heart Sounds: normal S1 and normal S2; no murmur Vessels: posterior tibial pulses present and dorsalis pedis pulses present; no JVD Extremities: no edema Gastrointestinal (Abdomen): normal bowel sounds, soft, nontender, no hepatosplenomegaly Psychiatric: A+Ox3, euthymic affect Results & Data Vital Signs (Past 12 Hours) Vital Signs Temp Pulse Resp BP Pulse Ox Pulse Ox 07/31/18 19:42 37.0 C 84 19 121/56 L 98 07/31/18 15:53 37.0 C 68 20 130/57 L 96 07/31/18 12:15 37.1 C 107 H 18 103/51 L 92 07/31/18 11:00 96 Laboratory Results Laboratory Results - last 24 hr 07/31/18 07/31/18 07/31/18 06:49 06:49 07:10 WBC 6.11 RBC 3.96 L Hgb 12.1 L Hct 36.3 L MCV 91.7 MCH 30.6 MCHC 33.3 RDW Std Deviation 49.0 H RDW Coeff of Elizabeth 14.4 Plt Count 144 MPV 10.5 H Sodium 140 Potassium 4.3 Chloride 108 H Carbon Dioxide 27 Anion Gap 6.0 BUN 16 Creatinine 0.81 Est Cr Clr Drug Dosing 66.6 Est GFR ( Amer) 93.9 Est GFR (Non-Af Amer) 81.0 BUN/Creatinine Ratio 19.7 Glucose 133 H POC Glucose 129 H Calcium 8.8 07/31/18 07/31/18 07/31/18 10:51 16:19 20:20 WBC RBC Hgb Hct MCV MCH MCHC RDW Std Deviation RDW Coeff of Elizabeth Plt Count MPV Sodium Potassium Chloride Carbon Dioxide Anion Gap BUN Creatinine Est Cr Clr Drug Dosing Est GFR ( Amer) Est GFR (Non-Af Amer) BUN/Creatinine Ratio Glucose POC Glucose 181 H 190 H 259 H Calcium PG Care Time/CCT Total # of Minutes Spent Total Time Spent with Patient: Total time spent is greater than 50% in coordination of care (as documented) at patient's floor/unit and/or counseling patient: (1) BPH (benign prostatic hyperplasia) Lower urinary tract symptom presence: symptoms absent Qualified Code(s): N40.0 - Benign prostatic hyperplasia without lower urinary tract symptoms (2) Diabetes mellitus Diabetes mellitus complication status: without complication Diabetes mellitus it senior analyst insulin use: with it senior analyst use Diabetes mellitus type: type 2 Qualified Code(s): E11.9 - Type 2 diabetes mellitus without complications; 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 artery [place] vs. transplanted heart: [place] heart Qualified Code(s): I25.10 - Atherosclerotic heart disease of [place] coronary artery without angina pectoris (4) Atrial fibrillation Atrial fibrillation type: chronic Qualified Code(s): I48.2 - Chronic atrial fibrillation (5) Hyperlipidemia Hyperlipidemia type: mixed hyperlipidemia Qualified Code(s): E78.2 - Mixed hyperlipidemia (6) Left lower lobe pneumonia Pneumonia type: due to unspecified organism Qualified Code(s): J18.1 - Lobar pneumonia, unspecified organism (7) GERD (gastroesophageal reflux disease) Esophagitis presence: esophagitis presence not specified Qualified Code(s): K21.9 - Gastro-esophageal reflux disease without esophagitis (8) Hypertension Hypertension type: essential hypertension Qualified Code(s): I10 - Essential (primary) hypertension
[2018-08-01 06:17] LABS: Hematocrit (blood only) 33.7 % (42-52); Hemoglobin 11.2 g/dL (14.0-18.0); Mean Corpuscular Hgb Conc 33.2 g/dL (32-36); Mean Corpuscular Volume 90.6 fL (80-100); Mean Platelet Volume 9.9 fL (7.4-10.4); Platelet Count 137 K/uL (130-400); RDW Coefficient of Variation 14.5 % (11.5-14.5); RDW Standard Deviation 47.8 fL (36.4-46.3); Red Blood Count 3.72 M/uL (4.7-6.1); White Blood Count 5.45 K/uL (4.8-10.8)
[2018-08-01 06:53] LABS: BUN Creatinine Ratio 22.8 (10-20); Calcium 8.7 mg/dl (8.5-10.1); Creatinine Clr Calc Pharmacy 63.8 ml/min; Est GFR (African American) 91.6; Est GFR (Non-African American) 79.1; Potassium 3.5 mmol/L (3.5-5.1)
[2018-08-01] MEDS: NYSTATIN SUSP 500,000 U/5 ML UDC PO SCH ×4 (08:15→21:17)
[2018-08-01] MEDS: FINASTERIDE 5 MG TAB PO SCH (08:15)
[2018-08-01] MEDS: HEPARIN SOD 5,000 UNIT/0.5 ML VIAL SQ SCH ×2 (08:15→21:13)
[2018-08-01] MEDS: TAMSULOSIN HCL 0.4 MG CAP PO SCH (08:15)
[2018-08-01] MEDS: INSULIN GLARGINE SOLOSTAR 100 UNITS/ML 3 ML PEN SC SCH ×2 (08:16→21:14)
[2018-08-01] MEDS: SIMVASTATIN 20 MG TAB PO SCH (08:16)
[2018-08-01] MEDS: ASPIRIN 81 MG ECTAB PO SCH (08:16)
[2018-08-01] MEDS: PANTOprazole 40 MG TAB PO SCH (08:16)
[2018-08-01] MEDS: INSULIN ASPART 100 UNITS/ML 3 ML PEN SC SCH ×4 (08:17→21:18)
[2018-08-01] MEDS ORDERED: predniSONE 20 MG TAB PO SCH (09:00)
[2018-08-01] MEDS ORDERED: METOPROLOL TARTRATE 50 MG TAB PO SCH (09:00)
[2018-08-01] MEDS: levoFLOXacin 750 MG TAB PO SCH (12:43)
--- NOTE | 2018-08-01 17:38 | Progress Note ---
DATE: 08/01/2018 The patient was seen today. He is on room air with 92% saturations. He states his breathing is "fine." I discussed this with the patient and his and [id number]. I believe this is a chronic process. I also discussed this with Dr. Banks. In looking back at past reports from outside institutions, he has had this collection for "years." I do not believe he is ill from this. At 83 and being a rather feeble state, I do not think this patient is a candidate for any type of decortication as I do not think it is affecting him much clinically. I will sign off the case. Please call me if you need me.
[2018-08-01] MEDS: METOPROLOL TARTRATE 100 MG TAB PO SCH (21:16)
--- NOTE | 2018-08-01 21:37 | Hospitalist Progress Note ---
Date of Service August 01, 2018 Assessment & Plan (1) Left lower lobe pneumonia: community acquired CLINICALLY IMPROVED/resolved day #4 of abx - complete the course with oral levaquin 750mg daily - plan 7 days in total IV/PO abx blood cx's from [facility] have been negative (2) Pleural effusion: left may be loculated, but no symptoms of empyema small to moderate on imaging s/p attempted thoracentesis yesterday by Dr Rosales to ensure no empyema, malignancy, etc - dry tap patient DID indeed have CT chest 2 years ago in [place] this was compared with CT done at [place] a few days ago left sided effusion findings are CHRONIC suggesting benign etiology I discussed his case w/ Dr Rosales - no need for repeat CT in 6 weeks since the effusion is small and chronic (3) Atrial fibrillation: poor rate control w/ activity dose of metoprolol 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 [place] 2-3 months ago will increase the BB to 100mg BID today echo reviewed -- preserved EF if we needed we could also add low-dose cardizem since EF is preserved apparently not on anticoagulation due to prior GI bleeding awaiting pacer interrogation to see what his rate control has been outside of the hospital (4) Diabetes mellitus: improving with weaning of prednisone cont lantus 10 units BID and novolog w/ meals (5) Hypertension: cont home meds (6) CAD (coronary artery disease): cont asa, statin, BB, etc no ischemic sx's at this time (7) Hyperlipidemia: statin (8) PMR (polymyalgia rheumatica): initial impression was that he was on 10mg/day at home chronically but apparently has been weaned off MANY months ago I had initially given him stress dose steroids with hydrocortisone - these have been stopped and will wean prednisone by time of discharge home (9) BPH (benign prostatic hyperplasia): cont flomax and finasteride foiding ok at this time (10) GERD (gastroesophageal reflux disease): cont PPI (11) Nonsustained ventricular tachycardia: seen on monitoring - no apparent symptoms; LV function preserved does have mild inferior wall hypokinesis on echo today but not having obvious ischemic symptoms 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 [place] about this and see if additional w/u is desired by him (12) DVT prophylaxis: heparin q12h PT, OT consults appreciated - cleared for home when medically stable extensively updated at bedside again today Subjective patient feeling good appetite very good ambulating better; cleared by PT for home tele - a.fib rates at rest are fine; with activity he promptly has fast rates into the 120-140 range he has some symptoms (palpitations) from the rapid afib also nonsustained V-tach has been seen no cp, dyspnea, cough, abd pain patient thinks he had echo at his [employer] and die [employer] [facility] a few months ago -- we contacted that office in [place] - he had EKG only thus obtained echo here today awaiting pacer interrogation also spoke w/ Dr Rosales patient DID have CT chest 2 years ago in [place] and minimal amount of left- sided pleural fluid is CHRONIC - was present 2 years ago and looks radiographically unchanged per Dr Rosales Review of Systems Constitutional: no fever, no chills, no body aches, no fatigue, no weakness and no anorexia Respiratory: no cough, no chest congestion, no dyspnea, no dyspnea on exertion, no pain on inspiration and no sputum production Cardiovascular: no chest pain Gastrointestinal: no abdominal pain, no nausea and no vomiting Physical Exam Constitutional: + thin; no acute distress ENMT: external ear and nose normal, oropharynx normal Respiratory: normal respiratory effort, lungs clear to auscultation Auscultation: + diminished lung sounds (left base but airation in this region IMPROVED today) and + rales (left base) Cardiovascular: Rate/Rhythm: regular rate and + irregularly irregular Heart Sounds: normal S1 and normal S2; no murmur Vessels: posterior tibial pulses present and dorsalis pedis pulses present; no JVD Extremities: no edema Gastrointestinal (Abdomen): normal bowel sounds, soft, nontender, no hepatosplenomegaly Psychiatric: A+Ox3, euthymic affect Results & Data Vital Signs (Past 12 Hours) Vital Signs Temp Pulse Resp BP Pulse Ox Pulse Ox Pulse Ox 08/01/18 19:21 36.5 C 99 H 16 140/79 94 08/01/18 15:39 36.5 C 97 H 16 146/72 H 92 08/01/18 14:44 36.9 C 84 18 118/61 96 08/01/18 12:30 36.4 C L 98 H 19 113/69 94 08/01/18 09:38 93 87 L Laboratory Results Laboratory Results - last 24 hr 08/01/18 08/01/18 08/01/18 06:05 06:05 07:22 WBC 5.45 RBC 3.72 L Hgb 11.2 L Hct 33.7 L MCV 90.6 MCH 30.1 MCHC 33.2 RDW Std Deviation 47.8 H RDW Coeff of Elizabeth 14.5 Plt Count 137 MPV 9.9 Sodium 140 Potassium 3.5 D Chloride 110 H Carbon Dioxide 23 Anion Gap 8.0 BUN 20 H Creatinine 0.86 Est Cr Clr Drug Dosing 63.8 Est GFR ( Amer) 91.6 Est GFR (Non-Af Amer) 79.1 BUN/Creatinine Ratio 22.8 H Glucose 82 POC Glucose 86 Calcium 8.7 08/01/18 08/01/18 08/01/18 11:28 15:58 20:01 WBC RBC Hgb Hct MCV MCH MCHC RDW Std Deviation RDW Coeff of [place] Plt Count MPV Sodium Potassium Chloride Carbon Dioxide Anion Gap BUN Creatinine Est Cr Clr Drug Dosing Est GFR ( Amer) Est GFR (Non-Af Amer) BUN/Creatinine Ratio Glucose POC Glucose 153 H 179 H 167 H Calcium PG Care Time/CCT Total # of Minutes Spent Total Time Spent with Patient: Total time spent is greater than 50% in coordination of care (as documented) at patient's floor/unit and/or counseling patient: (1) BPH (benign prostatic hyperplasia) Lower urinary tract symptom presence: symptoms absent Qualified Code(s): N40.0 - Benign prostatic hyperplasia without lower urinary tract symptoms (2) Diabetes mellitus Diabetes mellitus complication status: without complication Diabetes mellitus long-term insulin use: with long-term use Diabetes mellitus type: type 2 Qualified Code(s): E11.9 - Type 2 diabetes mellitus without complications; Z79.4 - prison (current) use of insulin (3) CAD (coronary artery disease) Associated angina: without angina Coronary Disease-Associated Artery/Lesion type: [place] artery [place] vs. transplanted heart: [place] heart Qualified Code(s): I25.10 - Atherosclerotic heart disease of [place] coronary artery without angina pectoris (4) Atrial fibrillation Atrial fibrillation type: chronic Qualified Code(s): I48.2 - Chronic atrial fibrillation (5) Hyperlipidemia Hyperlipidemia type: mixed hyperlipidemia Qualified Code(s): E78.2 - Mixed hyperlipidemia (6) Left lower lobe pneumonia Pneumonia type: due to unspecified organism Qualified Code(s): J18.1 - Lobar pneumonia, unspecified organism (7) GERD (gastroesophageal reflux disease) Esophagitis presence: esophagitis presence not specified Qualified Code(s): K21.9 - Gastro-esophageal reflux disease without esophagitis (8) Hypertension Hypertension type: essential hypertension Qualified Code(s): I10 - Essential (primary) hypertension
[2018-08-02 07:00] LABS: BUN Creatinine Ratio 23.3 (10-20); Calcium 8.8 mg/dl (8.5-10.1); Creatinine Clr Calc Pharmacy 63.8 ml/min; Est GFR (African American) 91.6; Est GFR (Non-African American) 79.1; Potassium 3.8 mmol/L (3.5-5.1)
[2018-08-02] MEDS: INSULIN ASPART 100 UNITS/ML 3 ML PEN SC SCH ×2 (07:55→12:15)
[2018-08-02] MEDS: METOPROLOL TARTRATE 100 MG TAB PO SCH (07:56)
[2018-08-02] MEDS: INSULIN GLARGINE SOLOSTAR 100 UNITS/ML 3 ML PEN SC SCH (07:56)
[2018-08-02] MEDS: PANTOprazole 40 MG TAB PO SCH (07:57)
[2018-08-02] MEDS: NYSTATIN SUSP 500,000 U/5 ML UDC PO SCH ×2 (07:57→12:15)
[2018-08-02] MEDS: TAMSULOSIN HCL 0.4 MG CAP PO SCH (07:57)
[2018-08-02] MEDS: SIMVASTATIN 20 MG TAB PO SCH (07:57)
[2018-08-02] MEDS: FINASTERIDE 5 MG TAB PO SCH (07:58)
[2018-08-02] MEDS: ASPIRIN 81 MG ECTAB PO SCH (07:58)
[2018-08-02] MEDS: HEPARIN SOD 5,000 UNIT/0.5 ML VIAL SQ SCH (07:58)
[2018-08-02] MEDS: predniSONE 10 MG TABLET PO SCH (07:59)
[2018-08-02] MEDS: levoFLOXacin 750 MG TAB PO SCH (12:15)
[2018-08-02 12:16] LABS: Estimated Average Glucose 160 mg/dl; Hemoglobin A1C 7.2 % (4.5-5.6)
--- NOTE | 2018-08-08 01:52 | History & Physical Report ---
Date of Service August 08, 2018 The patient was initially seen and examined on July 29, 2018. This is an addendum note for billing purposes only. Please refer to the original note for the full H&P. History of Present Illness Primary Care Provider: Layla Felipe Allergies Allergy/AdvReac Type Severity Reaction Status Date / Time latex Allergy Redness of Verified 07/29/18 01:21 Skin codeine AdvReac Mild FEELS GOOFY Verified 03/20/09 03:55 nitroglycerin AdvReac Mild HYPOTENSION Verified 03/20/09 03:55 pravastatin AdvReac Unknown Verified 07/29/18 01:08 rosuvastatin AdvReac Unknown Verified 07/29/18 01:08 Home Medications Home Medications Medication Instructions Recorded Confirmed Type Humalog U-100 Insulin 3 unit SUBCUT TID 07/29/18 07/29/18 History Lantus Solostar U-100 Insulin 5 unit SUBCUT BID 07/29/18 07/29/18 History ascorbic acid (vitamin C) [Vitamin 500 mg PO DAILY 07/29/18 07/29/18 History C] aspirin 81 mg PO DAILY 07/29/18 07/29/18 History finasteride 5 mg PO DAILY 07/29/18 07/29/18 History furosemide 40 mg PO DAILY 07/29/18 07/29/18 History metformin 850 mg PO BID 07/29/18 07/29/18 History pantoprazole 40 mg PO DAILY 07/29/18 07/29/18 History potassium chloride 8 meq PO DAILY 07/29/18 07/29/18 History simvastatin 20 mg PO DAILY 07/29/18 07/29/18 History tamsulosin 0.4 mg PO DAILY 07/29/18 07/29/18 History Saccharomyces boulardii 250 mg PO DAILY 7 Days #7 cap 08/02/18 Rx metoprolol tartrate 100 mg PO BID #60 tab 08/02/18 Rx nystatin 5 ml PO QID 7 Days #150 ml 08/02/18 Rx Past Med/Surg History Medical History Hyperlipidemia Diabetes mellitus PMR (polymyalgia rheumatica) Hypertension CAD (coronary artery disease) CVA (cerebral vascular accident) Arthritis GERD (gastroesophageal reflux disease) PVD (peripheral vascular disease) Pacemaker Prostate enlargement Surgical History H/O hernia repair History of appendectomy History of cholecystectomy History of hip surgery Hx of CABG Social History Preferred Language: Korean Communication Ability: Effective Beliefs That Will Affect Care: None marital status: Current Living Situation: Spouse Feels Safe at Home: Yes Smoking Status: Never smoker Hx Alcohol Use: No Hx Substance Use: No Code Status & VTE Plan VTE Prophylaxis Plan VTE Prophylaxis will be ordered: Yes Supervising Physician Co-Signing Physician Notes Attending addendum: I have physically seen this patient, have supervised the medical residents activities, and agree with the H&P unless as otherwise noted. Assessment and Plan: Pneumonia involving left lower lobe/parapneumonic effusion- Transfer from [facility] emergency department where he was given ceftriaxone IV. Admit on ceftriaxone 1 g IV daily and azithromycin 5 mg IV daily. Duonebs every 4 hours while awake and every 2 hours when necessary. Sputum Gram stain and culture. Guaifenesin extended release 600 mg p.o. twice daily. Pleural effusion noted on outpatient CT, however, on x-ray here, does not look to be prominent, but possibly loculated as reported on CT. Thoracic surgery consult to further assess. New onset atrial fibrillation with RVR- Noted during examination. Replacing electrolytes, in particular given magnesium 2 g IV now. IV fluid rehydration. Reassess after repeat laboratories in a few hours. May need IV Lopressor as needed. Remainder of orders and notations as noted. PG Care Time/CCT Total # of Minutes Spent Total Time Spent with Patient: Total time spent is greater than 50% in coordination of care (as documented) at patient's floor/unit and/or counseling patient:
--- NOTE | 2018-08-12 07:58 | Discharge Summary ---
Date of Service date of admission - July 29, 2018 date of discharge - August 02, 2018 Admission HPI Per Admitting Provider This is an 83 yo male - direct transfer from [facility] ER - with history of HTN, PVD, CVA, Pacemaker, PMR, DM, GERD, Hyperlipidemia. Patient's reported chief complaint was confusion. At the outside hospital, patient was febrile with 100.5 temperature, O2 sat 90- 99, RR 17-20, unremarkable Wbc ct, CMP unremarkable, Mg 1.7, CT head reportedly negative, CT chest with loculated left pleural effusion maybe secondary metastasis or infection. Patient was transferred for possible thoracentesis if indicated. Patient was given 2 gm of Rocephin prior to transfer. On arrival to [facility], patient was normotensive, afebrile patient was in Afib with RVR. Patient reports he previously had chest discomfort but it has resolved, no sob, no cough, no edema. Principal Diagnosis LLL community-acquired pneumonia Discharge Exam Constitutional + thin; no acute distress ENMT external ear and nose normal, oropharynx normal Respiratory Auscultation: + diminished lung sounds (left base (mild)) and + rales (left base) Cardiovascular Rate/Rhythm: regular rate and + irregularly irregular Heart Sounds: normal S1 and normal S2; no murmur Vessels: posterior tibial pulses present and dorsalis pedis pulses present; no JVD Extremities: no edema Gastrointestinal (Abdomen) normal bowel sounds, soft, nontender, no hepatosplenomegaly Psychiatric A+Ox3, euthymic affect Discharge Data Allergies Allergy/AdvReac Type Severity Reaction Status Date / Time latex Allergy Redness of Verified 07/29/18 01:21 Skin codeine AdvReac Mild FEELS GOOFY Verified 03/20/09 03:55 nitroglycerin AdvReac Mild HYPOTENSION Verified 03/20/09 03:55 pravastatin AdvReac Unknown Verified 07/29/18 01:08 rosuvastatin AdvReac Unknown Verified 07/29/18 01:08 Consultations 1. thoracic surgery - Alton Rosales MD 2. PT, OT Procedures Performed pacemaker interrogation echocardiogram - * EF 55-60% * moderate LVH * pulmonary HTN * mild basal inferior hypokinesis * mod-severe TR * bioprosthetic aortic valve Hospital Course (1) Left lower lobe pneumonia: community acquired CLINICALLY IMPROVED/resolved with IV/PO antibiotic therapy blood cx's from [facility] were negative will complete a few more days of oral levaquin to complete 7 days in total of treatment (2) Pleural effusion: left appears loculated on imaging, but no signs/symptoms of empyema small to moderate on imaging s/p attempted thoracentesis by Dr Alton Rosales to ensure no empyema, malignancy, etc - dry tap; no fluid obtained patient DID indeed have CT chest 2 years ago in [place] this was compared with CT done at [place] prior to transfer to [facility] left sided effusion findings are CHRONIC suggesting benign etiology case discussed with Dr Rosales - no need for repeat CT after discharge since the effusion is small and chronic (3) Diabetes mellitus: cont lantus BID and novolog with meals (4) Atrial fibrillation: Noted to have poor rate control with activity. Dose of metoprolol was increased to 75mg BID by his cable mock up assembler in [place] 2-3 months ago. Metoprolol dose was increased to 100mg BID during this stay. apparently not on anticoagulation due to prior GI bleeding pacer interrogation completed during this stay - most of his uncontrolled a.fib was around the time of his recent illness (5) Hypertension: continue home meds (6) CAD (coronary artery disease): cont asa, statin, BB, etc no ischemic sx's at this time (7) Hyperlipidemia: statin (8) PMR (polymyalgia rheumatica): Was on prednisone 10mg/day several months ago and these were successfully weaned off. No symptoms of PMR while hospitalized. (9) BPH (benign prostatic hyperplasia): cont flomax and finasteride no voiding issues (10) GERD (gastroesophageal reflux disease): cont PPI (11) Regional wall motion abnormality of heart: There was basal inferior wall hypokinesis on echo this admission. Echo placed on CD-ROM for patient and asked to bring this to his cable mock up assembler in [place]. He has not had obvious ischemic symptoms, however, leading up to this hospitalization. He will continue aspirin, statin, etc. (12) Candidiasis of mouth and esophagus: nystatin QID x 7-10 days improved prior to discharge Total Time Total Time Spent Total Time Spent (In Minutes): 40 Total Time Includes: Examination of the Patient, Discharge Planning and Medication Reconciliation Discharge Plan Discharge Items Patient Disposition: Home - Self-Care Reason For Visit: LEFT PLEURAL EFFUSION, LEFT SIDED PNEUMONIA. Discharge Diagnosis: left lower lobe pneumonia - resolving. left-sided pleural effusion - CHRONIC, present for at least 2 years. Discharge Goals: Diagnostic testing and Therapeutic intervention Activity: Resume your previous activity Non-emergency contact: Primary Care Provider Call non-emergency contact if: you have any medication questions, your symptoms worsen and your temperature is above 100.5 Follow-up/Referrals: Layla Felipe [Primary Care Provider] - (see your family doctor within 1 week) Leo Narayan [Staff Physician] - (see Dr Narayan, [facility], in 2-3 weeks.) Chiquis Ku CRNP [Outside Practitioners] - 08/07/18 2:00 pm (A follow up appt. has been made for you with CARLOS Fierro for August 07 at 2:00pm.) Diet: Carb Consistent or DM2 Addtl Provider Instructions: From Amador Banks - hospitalist - You were treated for left lower lobe pneumonia with IV followed by oral antibiotics. You improved nicely over time. The CAT scan at [place] showed a fluid collection in the left lung (known as a pleural effusion). For that reason you were seen by Dr Alton Rosales, surgeon. He tried to remove the fluid with a needle but it was a "dry tap." We later found out that the fluid has been present for at least 2 years. The chronicity would argue that the fluid is benign in nature (and there is only a small amount, too). We also found thrush (yeast) in your mouth as a result of your antibiotics for your pneumonia. This improved with the nystatin swish. Lastly, we increased your metoprolol to 100mg twice a day for your a.fib. Your pacemaker interrogation showed you have at least 4 more years of battery life left. Recommendations - 1. two more days of antibiotic starting tomorrow (levofloxacin). 2. probiotics 1 capsule daily for 7 days; you can start this today. 3. metoprolol 100mg twice a day. 4. nystatin swish - 5ml 4 times a day for 7 days; swish and swallow. Follow-up - 1. see your family doctor within [address] Narayan, your cable mock up assembler, within 2-3 weeks. Please bring the CD with your echo on it to him. Return to any emergency room if - 1. you have any fever over 100.5 degrees. 2. you have worsening shortness of breath. 3. you have chest pain or abdominal pains. 4. you develop severe diarrhea. 5. any other concerns. Prescriptions: New metoprolol tartrate 100 mg tablet 100 mg PO BID Qty: 60 RF: 2 Continued finasteride 5 mg tablet 5 mg PO DAILY RF: 0 furosemide 40 mg tablet 40 mg PO DAILY RF: 0 metformin 850 mg tablet 850 mg PO BID RF: 0 potassium chloride 8 mEq tablet extended release 8 meq PO DAILY RF: 0 tamsulosin 0.4 mg capsule 0.4 mg PO DAILY RF: 0 pantoprazole 40 mg tablet,delayed release (DR/EC) 40 mg PO DAILY RF: 0 simvastatin 20 mg tablet 20 mg PO DAILY RF: 0 ascorbic acid (vitamin C) [Vitamin C] 500 mg Tablet,Chewable 500 mg PO DAILY RF: 0 aspirin 81 mg Tablet,Chewable 81 mg PO DAILY RF: 0 Humalog U-100 Insulin 100 unit/mL Cartridge 3 unit SUBCUT TID RF: 0 Lantus Solostar U-100 Insulin 100 unit/mL (3 mL) insulin pen 5 unit subcut BID RF: 0 Discontinued prednisone 10 mg Tablet 10 mg PO DAILY RF: 0 Stand-Alone Forms: [facility]charge Orders: Discharge Order (Routine); Ordered 08/02/18 Ordered By: Amador Banks Admission Data Admit Date/Time: 07/29/18 00:36 Attending Provider: Amador Banks Admit Provider: Juan Antonio Calle Primary Care Provider: Layla Felipe Other Providers: Alton Rosales Service: Telemetry Other Interventions: Discharge Summary Assessment (RN) Last Done: 08/02/18 12:33 Pending Studies at Discharge: No DC Date/Time DO NOT enter until pt leaves facility: 08/02/18 14:25
== END 2018-08-02 14:25 | disposition home or self-care (01) | DRG 194 ==
LOC: 2E 07-29 00:36 → SUATTDRO 07-29 00:36
DX: I48.91 Unspecified atrial fibrillation; I25.10 Atherosclerotic heart disease of native coronary artery without angina pectoris; J18.9 Pneumonia, unspecified organism; E11.9 Type 2 diabetes mellitus without complications; N40.0 Benign prostatic hyperplasia without lower urinary tract symptoms; I47.2 Ventricular tachycardia; J90 Pleural effusion, not elsewhere classified; E78.5 Hyperlipidemia, unspecified; M35.3 Polymyalgia rheumatica; K21.9 Gastro-esophageal reflux disease without esophagitis; I10 Essential (primary) hypertension